=== PATIENT | female | born 1980 | race Caucasian/White ===

== ENCOUNTER 2020-06-05 17:23 | Emergency (ER) | payer BC, SELFPAY ==
[~2020-06-05] VITALS: Ht 167.6 cm; Wt 86.4 kg
[2020-06-05 17:26] VITALS: BP 147/92
== END 2020-06-05 18:59 | disposition home or self-care (01) ==
LOC: ER 17:24
DX: R05 Cough (principal); Z20.828 Contact with and (suspected) exposure to other viral communicable diseases; R06.02 Shortness of breath
CPT/HCPCS: 36415; 99281